=== PATIENT | female | born 2000 | race Caucasian/White ===

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

== ENCOUNTER → 2023-06-23 | Outpatient (REF) | payer BC | LOC: M SFHCWAGY 17:44 | PROVIDERS: ATTEND Advanced Practice Midwife | DX: Z12.4 Encounter for screening for malignant neoplasm of cervix (principal) ==

== ENCOUNTER → 2024-02-24 | Outpatient (REF) | payer BC ==
[2024-02-24 16:59] LABS: BASO % 0.5 % (0.0-1.0); EOS % 1.1 % (0.0-3.0); HEMATOCRIT 38.5 % (36.0-47.0); HEMOGLOBIN 12.9 g/dl (12.0-15.5); LYMPH # 1.5 10^3/uL (1.5-5.0); LYMPH % 38.8 % (24.0-44.0); MEAN CORPUSCULAR HEMOGLOBIN 29.9 pg (27.0-33.0); MEAN CORPUSCULAR HGB CONC 33.5 g/dl (32.0-36.5); MEAN CORPUSCULAR VOLUME 89.1 fl (80.0-96.0); MONO # 0.3 10^3/uL (0.0-0.8); MONO % 7.5 % (2.0-8.0); NEUTROPHILS # 1.9 10^3/uL (1.5-8.5); NEUTROPHILS % 51.8 % (36.0-66.0); PLATELET COUNT, AUTOMATED 176 10^3/uL (150-450); RED BLOOD COUNT 4.32 10^6/uL (4.00-5.40); WHITE BLOOD COUNT 3.7 10^3/uL (4.0-10.0)
[2024-02-24 17:35] LABS: BLOOD UREA NITROGEN 13 MG/DL (9-23); CALCIUM LEVEL 9.5 MG/DL (8.5-10.1); CARBON DIOXIDE LEVEL 24 MMOL/L (20-31); CHLORIDE LEVEL 110 MMOL/L (98-107); CHOLESTEROL LEVEL 183 MG/DL (<200); CHOLESTEROL RISK RATIO 3.28 (<5); CREATININE FOR GFR 0.61 MG/DL (0.55-1.30); GLOMERULAR FILTRATION RATE > 60.0 (>60); GLUCOSE, FASTING 88 MG/DL (60-100); HDL CHOLESTEROL 55.7 MG/DL (>40); LDL CHOLESTEROL 101.7 MG/DL (<100); NON-HDL-C 127.3 MG/DL; POTASSIUM SERUM 4.9 MMOL/L (3.5-5.1); SODIUM LEVEL 137 MMOL/L (136-145); TRIGLYCERIDES LEVEL 128 MG/DL (<150)
[2024-02-24 17:37] LABS: THYROID STIMULATING HORMONE 1.689 uIU/ML (0.55-4.78); TOTAL 25(OH) VITAMIN D 27.7 NG/ML (20.0-100.0)
== END ==
LOC: M LAB REF 16:16
PROVIDERS: ATTEND Nurse Practitioner Family
DX: E55.9 Vitamin D deficiency, unspecified (principal); Z11.9 Encounter for screening for infectious and parasitic diseases, unspecified; Z13.6 Encounter for screening for cardiovascular disorders; R53.83 Other fatigue

== ENCOUNTER → 2024-06-25 | Outpatient (REF) | payer BC ==
[2024-06-29 11:54] LABS: HPV APTIMA Not Detected (Not Detected)
== END ==
LOC: M SFHCWAGY 16:49
PROVIDERS: ATTEND Advanced Practice Midwife
DX: Z12.4 Encounter for screening for malignant neoplasm of cervix (principal)